=== PATIENT | male | born 1950 | race Two or more races ===

== ENCOUNTER 2022-11-24 06:03 | Day surgery (SDC) | payer OTHER | END 2022-11-24 12:00 | disposition home or self-care (01) | LOC: AMB-ENDOS 06:03 → CIR.AMB 06:03 → AMB-ENDOS 12:00 → CIR.AMB 14:15 | PROVIDERS: ATTEND Surgery | DX: D12.2 Benign neoplasm of ascending colon (principal); Z20.822 Contact with and (suspected) exposure to COVID-19; I10 Essential (primary) hypertension; E11.9 Type 2 diabetes mellitus without complications ==